=== PATIENT | female | born 1955 | race Caucasian/White ===

== ENCOUNTER 2016-10-16 20:08 | Emergency (ER) | payer OTHER ==
[~2016-10-16] VITALS: Ht 149.9 cm; Wt 59.0 kg
--- NOTE | 2016-10-16 20:14 | NUR ---
PT BIB PARAMEDICS, PT COMING FROM HOME, PT STATES SHE WAS BENDING OVER TO [employer] WHEN SHE SUDDENLY STARTED TO FEEL NUMBNESS TO HANDS/ANXIETY/LEFT ARM PAIN/WEAK/DIZZY... PT IS ALERT, ORIENTED X 4, NO RESP DISTRESS NOTED OR REPORTED UPON ASSESSMENT... MD AT BEDSIDE...
[2016-10-16] MEDS ORDERED: [UNRECOGNIZED DRUG - REMARK] (20:22)
[2016-10-16] MEDS ORDERED: [UNRECOGNIZED DRUG - REMARK] (20:22)
[2016-10-16] MEDS ORDERED: [UNRECOGNIZED DRUG - REMARK] (20:22)
[2016-10-16] MEDS ORDERED: ONDANSETRON 4 MG/2 ML VIAL IV ONE (20:45)
[2016-10-16] MEDS ORDERED: IV NORMAL SALINE 1000 ML BAG IV ONE (20:45)
[2016-10-16 21:10] LABS: CARBON DIOXIDE 26 mmol/L (21-32); CHLORIDE 104 mmol/L (98-107); CREATININE 0.9 mg/dL (0.6-1.3); GLUCOSE 143 mg/dL (74-106); POTASSIUM 4.1 mmol/L (3.5-5.1); UREA NITROGEN, BLOOD 15 mg/dL (7-18)
[2016-10-16 21:13] LABS: BASOPHILS % (AUTO) 0.3 % (0.0-2.0); EOSINOPHILS # (AUTO) 0.1 K/uL (0.0-0.7); EOSINOPHILS % (AUTO) 1.9 % (0.0-7.0); HEMATOCRIT 35.8 % (37-47); HEMOGLOBIN 12.4 G/DL (12.0-16.0); LYMPHOCYTES # (AUTO) 1.4 K/UL (0.8-4.8); LYMPHOCYTES % (AUTO) 22.6 % (20.5-51.5); MEAN CORPUSCULAR HEMOGLOBIN 32.2 UUG (27.0-31.0); MEAN CORPUSCULAR HGB CONC 35 g/dL (32.0-37.0); MONOCYTES # (AUTO) 0.4 K/UL (0.1-1.30); MONOCYTES % (AUTO) 5.7 % (0.0-11.0); NEUTROPHILS # (AUTO) 4.4 K/UL (1.8-8.9); NEUTROPHILS % (AUTO) 69.5 % (38.5-71.5); PLATELET COUNT (AUTO) 242 K/UL (150-450); RED BLOOD CELL COUNT(AUTO) 3.85 MIL/UL (4.2-5.4); WHITE BLOOD COUNT (AUTO) 6.3 K/UL (4.0-11.2)
[2016-10-16] MEDS ORDERED: ONDANSETRON 4 MG/2 ML VIAL ONE (21:15)
[2016-10-16 21:16] LABS: ALANINE AMINOTRANSFERASE 41 U/L (14-59); ALKALINE PHOSPHATASE 78 U/L (50-136); ASPARTATE AMINOTRANSFERASE 36 U/L (15-37); BILIRUBIN,DIRECT < 0.1 mg/dL (0.0-0.2); BILIRUBIN,TOTAL 0.2 mg/dL (0.2-1.0); TOTAL PROTEIN, SERUM 6.7 g/dL (6.4-8.2)
[2016-10-16] MEDS ORDERED: IV NORMAL SALINE 250 ML IV ONE (22:07)
[2016-10-16] MEDS ORDERED: IOHEXOL 300MG/ML 100 ML INFUS..BTL ONE (22:07)
[2016-10-16] MEDS ORDERED: NORMAL SALINE FLUSH 10 ML DISP.SYRIN ONE (22:07)
[2016-10-16 22:30] LABS: *BILIRUBIN,URIN NEGATIVE (NEGATIVE); *BLOOD, URINE NEGATIVE (NEGATIVE); *CLARITY,URINE CLEAR (CLEAR); *COLOR,URINE YELLOW (YELLOW); *KETONES,URINE NEGATIVE (NEGATIVE); *PROTEIN,URINE NEGATIVE (NEGATIVE); *UROBILINOGEN,URINE 0.2 E.U./dl (NORMAL); LEUKOCYTE ESTERASE ,URINE NEGATIVE (NEGATIVE); NITRITE, URINE NEGATIVE (NEGATIVE); UGLUCOSE NEGATIVE (NEGATIVE)
[2016-10-16 22:35] LABS: RBC,URINE 0-3 /HPF (0-3)
[2016-10-16 22:36] LABS: MUCUS,URINE FEW /LPF (0-FEW); SQUAMOUS EPITHELIAL CELL,UR FEW /HPF (NONE SEEN)
--- NOTE | 2016-10-17 00:02 | NUR ---
[facility] contacted spoke with James, gave pt pertinent info, gave vitals of 118/71, resp 17, temp 97.7, hr-53, sp02 98%...James states she will have femi MEDINA contact [facility]....
[2016-10-17] MEDS ORDERED: ACETAMINOPHEN ES 500 MG TABLET PO ONE (00:30)
--- NOTE | 2016-10-17 01:20 | NUR ---
Contacted [facility], spoke with Katlin MCKEON, advised ambulance ETA to [facility] pick[facility]er pt is 0125....
--- NOTE | 2016-10-17 01:27 | NUR ---
Patient Tranfers to outside Facility Physician: DR. HANNON Location: [facility]
== END 2016-10-17 02:16 | disposition short-term general hospital (02) ==
LOC: ER 20:09
DX: R55 Syncope and collapse (principal); I99.8 Other disorder of circulatory system; R20.9 Unspecified disturbances of skin sensation; M79.602 Pain in left arm; R00.1 Bradycardia, unspecified; F32.9 Major depressive disorder, single episode, unspecified
CPT/HCPCS: 36415; 70450; 71260; 72125; 72193; 74160; 80048; 80076; 81001; 84484; 85025; 85730; 86850; 86900; 86901; 93005; 96361; 96374; 99285; A4663; J2405; J3490; J7050; Q9967; 70030-TC; J7030